=== PATIENT | male | born 1960 | race Caucasian/White ===

== ENCOUNTER 2024-09-29 12:14 | Emergency (ER) | payer SELFPAY ==
[~2024-09-29] VITALS: Ht 180.3 cm; Wt 113.4 kg
[2024-09-29] MEDS ORDERED: FAMOTIDINE 50 ML IV ONE (12:50)
[2024-09-29] MEDS ORDERED: methylPREDNISolone sod succ 125 MG VIAL IV ONE (12:50)
[2024-09-29] MEDS ORDERED: diphenhydrAMINE hydrochloride 50 MG/ML VIAL IV ONE (12:50)
[2024-09-29] MEDS ORDERED: PREDNISONE10 MG PO (13:41)
== END 2024-09-29 13:43 | disposition home or self-care (01) ==
LOC: ED 12:14
DX: L25.9 Unspecified contact dermatitis, unspecified cause (principal); F17.210 Nicotine dependence, cigarettes, uncomplicated